=== PATIENT | male | born 1930 | race Caucasian/White ===

== ENCOUNTER 2016-10-19 17:54 | Emergency (ER) | payer MEDICARE ==
[2016-10-19] MEDS ORDERED: Oxymetazoline HCl 0.05% ( 15 ML ) ONE (18:05)
[2016-10-19] MEDS ORDERED: Lisinopril 5 MG TAB ONE (18:38)
[2016-10-19] MEDS ORDERED: Cephalexin 250 MG CAP ONE (19:30)
--- NOTE | 2016-10-19 20:41 | PICIS ---
[facility] EMERGENCY RECORD TRIAGE ([facility] Oct 19, 2016 17:58 KMOR) TRIAGE NOTES: Nosebleed started at 1430. ([facility] Oct 19, 2016 17:58 KMOR) PATIENT: NAME: Mark Lamas JR, AGE: 85, GENDER: male, : [id number], TIME OF GREET: FriOct 19, 2016 17:54, PREFERRED LANGUAGE: Citizen Of [place], ETHNICITY: Not or , ECODE BILLING MAP: [facility], SSN: [id number], Zip Code: [address], KG WEIGHT: 90.72, PHONE: , , , PERSON ID: [id number], PAYMENT: [employer] Medicare, PCP: Richy KENT KRISTI. ([facility] Oct 19, 2016 17:58 KMOR) COMPLAINT: nosebleed. ([facility] Oct 19, 2016 17:58 KMOR) ADMISSION: URGENCY: 3 Urgent, ADMISSION SOURCE: Home, TRANSPORT: CAR, BED: ER -01. ([facility] Oct 19, 2016 17:58 KMOR) ASSESSMENT: Assessment: A&OX4. RR EVEN AND UNLABORED., Symptoms began 4 hours ago. (18:02 KMOR) PAIN: No complaint of pain. (18:02 KMOR) TRIAGE SCREENING: Patient denies suicidal ideation, Patient denies presence of domestic violence. (18:02 KMOR) PROVIDERS: TRIAGE NURSE: Zeina Monreal RN. ([facility] Oct 19, 2016 17:58 KMOR) PREVIOUS VISIT ALLERGIES: codeine sulfate. ([facility] Oct 19, 2016 17:58 KMOR) codeine sulfate. (18:02 KMOR) KNOWN ALLERGIES codeine sulfate: Reaction: Hives, Severity: Moderate CURRENT MEDICATIONS amiodarone: TABLET : Strength - 200 mg : ORAL Patient Dose: 200 mg Oral once a day. (19:05 KMOR) Eliquis: TABLET : Strength - 5 mg : ORAL Patient Dose: 5 mg Oral 2 times a day. (19:05 KMOR) meTOPROLOL tartrate: TABLET : Strength - 25 mg : ORAL Patient Dose: 12.5 mg Oral 2 times a day. (19:06 KMOR) atorvastatin: TABLET : Strength - 40 mg : ORAL Patient Dose: 40 mg Oral once a day. (19:07 KMOR) furosemide: TABLET : Strength - 40 mg : ORAL Patient Dose: 40 mg Oral As Needed. (19:07 KMOR) lisinopril: TABLET : Strength - 2.5 mg : ORAL Patient Dose: 2.5 mg Oral once a day (in the morning). (19:07 KMOR) Pepcid: TABLET : Strength - 20 mg : ORAL Patient Dose: Unknown. (19:07 KMOR) &a-1R&a+25V*p+0X*m9108D*c202B*c15G*c2P*p-0X&a-25V&a+1R Name: Mark Lamas Pat LAN : 1930 M85 MedRec: [id number] AcctNum: [id number] Prepared: Bessie Oct 20, 2016 06:15 by Interface Page 1 of 7 pMD [facility] EMERGENCY RECORD VITAL SIGNS VITAL SIGNS: BP: 163/123, Pulse: 101, Resp: 20, Temp: 98.0 (Axillary), Pain: 0, O2 sat: 94 on Room Air, Time: 10/19/2016 18:30. (18:30 KMOR) BP: 176/123, Pulse: 113, Resp: 20, Pain: 0, O2 sat: 93 on Room Air, Time: 10/19/2016 18:00. (18:00 KMOR) BP: 145/110, Pulse: 95, Resp: 20, Pain: 0, O2 sat: 94 on Room Air, Time: 10/19/2016 19:07. (19:07 KMOR) BP: 158/112, Pulse: 106, Resp: 20, Pain: 0, O2 sat: 93 on Room Air, Time: 10/19/2016 19:15. (19:15 KMOR) BP: 151/113, Pulse: 92, Resp: 18, Pain: 0, O2 sat: 95 on RA, Time: 10/19/2016 19:26. (19:26 CHOB) BP: 147/112, Pulse: 100, Resp: 18, Temp: 97.5, Pain: 0, O2 sat: 95 on RA, Time: 10/19/2016 20:02. (20:02 CHOB) NURSING ASSESSMENT: ENT (18:45 KMOR) CONSTITUTIONAL: Patient arrives ambulatory, Gait steady, History obtained from patient, Patient appears, uncomfortable, Patient cooperative, Patient alert, Oriented to person, place and time, Skin warm, Skin dry, Skin normal in color, Mucous membranes pink, Mucous membranes moist, Patient is well-groomed, Patient complains of Nosebleed, bilateral nose bleed started at 1430, no injury or history. PAIN: Patient rates pain as 0 out of 10. ENT: Ear assessment findings include ear normal to inspection, Nasal assessment findings include nose normal to inspection, Sinuses normal, Nasal mucosa normal, Bleeding, large amount, from bilateral nare, uncontrolled. RESPIRATORY/CHEST: Breath sounds clear, Respiratory assessment findings include respiratory effort easy, Respirations regular, Conversing normally, Neck and chest exam findings include trachea midline, Chest expansion equal, Chest movement symmetrical, no signs of distress, Associated with cough. NOTES: Patient tolerated procedure well. NURSING PROCEDURE: DISCHARGE NOTE (20:02 CHOB) DISCHARGE: Patient discharged to home, ambulating without assistance, family driving, accompanied by //partner, Patient requested and was provided an electronic copy of Discharge Instructions, Discharge instructions given to patient, Simple or moderate discharge teaching performed, by ARIS GARCIA, Prescriptions given and instructions on side effects given, Name of prescription(s) given: KEFLEX 500MG X28, Above person(s) verbalized understanding of discharge instructions and follow-up care. BELONGINGS: Belongings and valuables with patient at time of discharge include:, Belongings remain with patient. SAFETY: Side rails up, Cart/Stretcher in lowest position, Family at bedside, Call light within reach, Hospital ID band on. VITAL SIGNS: BP: 147, / 112, Pulse: 100, Resp: 18, Temp: 97.5, &a-1R&a+25V*p+0X*v2657J*c202B*c15G*c2P*p-0X&a-25V&a+1R Name: Mark Lamas JR : 1930 M85 MedRec: [id number] AcctNum: [id number] Prepared: Bessie Oct 20, 2016 06:15 by Interface Page 2 of 7 pMD [facility] EMERGENCY RECORD Pain: 0, O2 sat: 95, on: RA. NURSING PROCEDURE: ENT (18:25 KMOR) PATIENT IDENTIFIER: Patient actively involved in identification process, Patient's identity verified by patient stating name, Patient's identity verified by patient stating date. ENT: ENT care indicated for epistaxis control, Epistaxis control performed to right nare, controlled with packing, by Dr. Dr. Murry. NOTES: Patient tolerated procedure well. NURSING PROCEDURE: NURSE NOTES NURSES NOTES: Notes: Patient resting back in bed, RR even and unlabored, packing in place. Bleeding appears controlled. (19:08 KMOR) Notes: Patient ambulatory to bathroom with steady gait, no dizziness, no bleeding. (19:15 KMOR) Patient in no apparent distress, Pillow given to patient, Warm blanket given to patient, Notes: WILL CONTINUE TO MONITOR BP. NO DISTRESS NOTED. (19:26 CHOB) VITAL SIGNS: BP: 151, / 113, Pulse: 92, Resp: 18, Pain: 0, O2 sat: 95, on: RA. (19:26 CHOB) MEDICATION ADMINISTRATION SUMMARY Drug Name: lisinopril, Dose Ordered: 10 mg, Route: Oral, Status: Canceled, Time: 18:39 10/19/2016, Drug Name: Keflex, Dose Ordered: 500 mg, Route: Oral, Status: Given, Time: 19:30 10/19/2016, Drug Name: *lisinopril, Dose Ordered: 5 mg, Route: Oral, Status: Given, Time: 18:44 10/19/2016, Drug Name: *Afrin No Drip, Dose Ordered: 2 puff(s), Route: Intranasal, Status: Given, Time: 18:20 10/19/2016, *Additional information available in notes, Detailed record available in Medication Service section. MEDICATION SERVICE Afrin No Drip: Order: Afrin No Drip (oxymetazoline HCl) - Dose: 2 puff(s) : Intranasal Schedule: Now Notes: Read back and verified, Verbal Order Ordered by: Mark Murry DO Entered by: Zeina Monreal RN Sat Oct 19, 2016 18:47 Documented as given by: Zeina Monreal RN Sat Oct 19, 2016 18:20 Patient, Medication, Dose, Route and Time verified prior to administration. Amount given: 2 puffa, Site: Medication administered bilateral nares, Correct patient, time, route, dose and medication confirmed prior to administration, Patient advised of actions and side-effects prior to administration, Allergies confirmed and medications reviewed prior to administration, Administered by Dr. murry, Advised not to &a-1R&a+25V*p+0X*b7440H*c202B*c15G*c2P*p-0X&a-25V&a+1R Name: Mark Lamas : 1930 M85 MedRec: [id number] AcctNum: [id number] Prepared: Bessie Oct 20, 2016 06:15 by Interface Page 3 of 7 pMD [facility] EMERGENCY RECORD ambulate without assistance, Patient in position of comfort, Side rails up, Cart in lowest position, Family at bedside. : Follow Up : Response assessment performed, No signs or symptoms of allergic reaction noted. (19:20 KMOR) Keflex: Order: Keflex (cephalexin monohydrate) - Dose: 500 mg : Oral Schedule: Now Ordered by: Mark Murry DO Entered by: Mark Murry DO [facility] Oct 19, 2016 19:29 , Acknowledged by: Julianne Zapata RN [facility] Oct 19, 2016 19:29 Documented as given by: Julianne Zapata RN [facility] Oct 19, 2016 19:30 Patient, Medication, Dose, Route and Time verified prior to administration. Amount given: 500MG, Site: Medication administered P.O., Correct patient, time, route, dose and medication confirmed prior to administration, Patient advised of actions and side-effects prior to administration, Allergies confirmed and medications reviewed prior to administration, Patient in position of comfort, Side rails up, Cart in lowest position, Family at bedside, Call light in reach. lisinopril: Order: lisinopril - Dose: 5 mg : Oral Schedule: Now Notes: Read back and verified, Verbal Order Ordered by: Mark Murry DO Entered by: Zeina Monreal RN [facility] Oct 19, 2016 18:40 , Acknowledged by: Zeina Monreal RN [facility] Oct 19, 2016 18:40 Documented as given by: Zeina Monreal RN [facility] Oct 19, 2016 18:44 Patient, Medication, Dose, Route and Time verified prior to administration. Amount given: 5mg, Site: Medication administered P.O., Correct patient, time, route, dose and medication confirmed prior to administration, Patient advised of actions and side-effects prior to administration, Allergies confirmed and medications reviewed prior to administration, Patient in position of comfort, Side rails up, Cart in lowest position, Family at bedside. : Follow Up : Response assessment performed, No signs or symptoms of allergic reaction noted, Decreased blood pressure. (19:20 KMOR) (CANCELED) lisinopril: Order: lisinopril - Dose: 10 mg : Oral Schedule: Now Ordered by: Mark Murry DO Entered by: Mark Murry DO Sat Oct 19, 2016 18:27 , Acknowledged by: Odilon Linton RN Sat Oct 19, 2016 18:29 Canceled by: Zeina Monreal RN. Sat Oct 19, 2016 18:39 Cancel reason: Change in medication plan. HPI EPISTAXIS (18:58 WMEI) CHIEF COMPLAINT: Patient presents for evaluation of epistaxis, Patient presents for evaluation of spitting up blood. HISTORIAN: History provided by patient, History &a-1R&a+25V*p+0X*m3086I*c202B*c15G*c2P*p-0X&a-25V&a+1R Name: Mark Lamas Pat LAN : 1930 M85 MedRec: [id number] AcctNum: [id number] Prepared: Bessie Oct 20, 2016 06:15 by Interface Page 4 of 7 pMD [facility] EMERGENCY RECORD provided by patient's family, daughter. LOCATION: Symptoms are localized, most severe in the right nare, started r nares then came out of both nares. TIME COURSE: Sudden onset of symptoms, 2, hours prior to arrival. ASSOCIATED WITH: Associated with anticoagulant use, eliquis for 2 mths a fib. EXACERBATED BY: Patient's condition exacerbated by nothing. RELIEVED BY: Patient's condition relieved by nothing. ROS (18:59 WMEI) CONSTITUTIONAL: Historian denies chills, denies fever. EYES: Historian denies eye pain, denies eye discharge. ENT: Historian denies otalgia, denies otorrhea, denies sinus pain. CARDIOVASCULAR: Historian denies chest pain, no radiation. RESPIRATORY: Historian reports cough, denies shortness of breath. GI: Historian denies abdominal pain, denies nausea, denies vomiting. MUSCULOSKELETAL: Historian denies injury, denies joint stiffness. SKIN: Historian denies skin changes, denies skin lesions. NEUROLOGIC: Historian denies mental status changes, denies paresthesias. PSYCHIATRIC: Historian denies alcohol abuse, denies depression. PAST MEDICAL HISTORY (18:02 KMOR) MEDICAL HISTORY: Notes: new onset Afib RVR, hx of PE's 2012, Past medical history includes history of hypertension, which has been treated, Patient is compliant. MALE SURGICAL HISTORY: Cataract sx, eyelid renewal 1999. PSYCHIATRIC HISTORY: No previous psychiatric history. SOCIAL HISTORY: Patient drinks every day, less than 5 drinks per day, Patient denies drug use, Patient has no smoking history. PHYSICAL EXAM (19:01 WMEI) CONSTITUTIONAL: Vital Signs Reviewed, Patient appears pain free, Patient alert and oriented to person, place and time. HEAD: Head exam included findings of head atraumatic, normocephalic. EYES: Sclera normal, Fundoscopic exam normal. ENT: Ear exam normal, Bleeding from the right nare, no septal hematoma, no foreign body, clotted blood posterior pharynx, Pharynx. NECK: Neck exam included findings of normal range of motion, Trachea midline. RESPIRATORY CHEST: Breath sounds clear, Chest exam included findings of chest movement symmetrical. &a-1R&a+25V*p+0X*j0968M*c202B*c15G*c2P*p-0X&a-25V&a+1R Name: Mark Lamas Pat LAN : 1930 M85 MedRec: [id number] AcctNum: [id number] Prepared: Bessie Oct 20, 2016 06:15 by Interface Page 5 of 7 pMD [facility] EMERGENCY RECORD CARDIOVASCULAR: Cardiovascular exam included findings of heart rate regular rate and rhythm, Heart sounds normal. ABDOMEN MALE: Abdominal exam included findings of abdomen nontender, no distension. UPPER EXTREMITY: Upper extremity exam included findings of inspection normal, Range of motion normal, Motor strength normal. LOWER EXTREMITY: Lower extremity exam included findings of inspection normal, Range of motion normal, Motor strength normal. NEURO: Alan coma scale 15, Neuro exam findings include patient oriented to person, place and time, Speech normal, Gait normal. SKIN: Rash present, Cellulitis present. LYMPHATIC: Lymphatic exam normal. PSYCHIATRIC: Psychiatric exam included findings of patient oriented to person place and time, Normal affect, Judgment normal, Insight normal. EVENTS TRANSFER: Triage to Emergency Emergency Room -01. (17:58 KMOR) Removed from Emergency Emergency Room -01. (20:02 CHOB) EPISTAXIS (19:41 WMEI) EPISTAXIS: Emergent consent implied, Procedure indicated for significant bleeding, not associated with trauma, Procedure indicated due to local pressure was ineffective, Bleeding is anterior, from the right nare, Anterior packing, using cell matrix, After procedure, bleeding stopped, Antibiotic prescription given, Patient tolerated the procedure well. PROBLEM LIST No recorded problems DIAGNOSIS (19:41 WMEI) FINAL: PRIMARY: EPISTAXIS. DISPOSITION PATIENT: Disposition Type: Discharge, Disposition: *Discharge Home. (19:41 WMEI) Patient left the department. (20:02 CHOB) INSTRUCTION (19:41 WMEI) DISCHARGE: EPISTAXIS (ADULT). FOLLOWUP: Richy KENT KRISTI, [facility] [place] [address], [phone]. SPECIAL: Follow-up with your PCP 2 days. PRESCRIPTION (19:40 WMEI) cephALEXin: CAPSULE : 500 mg : ORAL : Quantity: 500 Unit: mg Route: ORAL Schedule: 4 times a day Dispense: 28 Unit: cap(s) May substitute. Refills: No Refills . &a-1R&a+25V*p+0X*v0509X*c202B*c15G*c2P*p-0X&a-25V&a+1R Name: Mark Lamas JR : 1930 M85 MedRec: [id number] AcctNum: [id number] Prepared: Bessie Oct 20, 2016 06:15 by Interface Page 6 of 7 pMD [facility] EMERGENCY RECORD NOTES: No refills. ADMIN (Bessie Oct 20, 2016 06:04 WMEI) DIGITAL SIGNATURE: DO Murry William. Diaz: CHOB=ARIS Zapata, Julianne KMOR=ARIS Monreal Krista WMEI=DO Murry William &a-1R&a+25V*p+0X*t8660Z*c202B*c15G*c2P*p-0X&a-25V&a+1R Name: Mark Lamas JR : 1930 M85 MedRec: [id number] AcctNum: [id number] Prepared: Bessie Oct 20, 2016 06:15 by Interface Page 7 of 7 pMD MTDD
== END 2016-10-19 20:02 | disposition home or self-care (01) ==
LOC: BURERS 17:54
DX: R04.0 Epistaxis (principal); I10 Essential (primary) hypertension; Z79.899 Other long term (current) drug therapy
CPT/HCPCS: 30901

== ENCOUNTER 2017-01-30 10:09 | Outpatient (CLI) | payer MEDICARE ==
[2017-01-30 11:24] LABS: Anion Gap 12 mmol/L (10-20); BUN (Urea Nitrogen) 20 mg/dL (8.4-25.7); Calc. Creatinine Clearance 0 mL/min (70-130); Calcium 8.9 mg/dL (7.8-10.44); Carbon Dioxide 26 mmol/L (23-31); Chloride 107 mmol/L (98-107); Estimated GFR-MDRD 65; Glucose 78 mg/dL (83-110); Potassium 4.5 mmol/L (3.5-5.1); Sodium 140 mmol/L (136-145)
== END 2017-01-30 10:10 | disposition home or self-care (01) ==
LOC: BURLAB 10:09
PROVIDERS: ATTEND Internal Medicine Cardiovascular Disease
DX: I48.2 Chronic atrial fibrillation (principal)
CPT/HCPCS: 36415; 80048